=== PATIENT | female | born 1965 | race American Indian/Alaskan Native ===

== ENCOUNTER 2017-03-07 16:20 | Emergency (ER) | payer OTHER ==
[~2017-03-07] VITALS: Ht 165.1 cm; Wt 67.6 kg
[~2017-03-07 16:20] MED LIST: OMEP20ER PO; QC MULTI VITE PO; ZESTORETIC 20-121 EA PO
[2017-03-07] MEDS ORDERED: Ultram50 MG PO (16:55)
[2017-03-07] MEDS ORDERED: IBUP800 PO (16:55)
[2017-03-07] MEDS ORDERED: Augmentin 875-1 EACH PO (16:55)
[2017-07-02] MEDS ORDERED: Zantac150 MG PO (22:18)
[2017-07-02] MEDS ORDERED: PANT40 PO (22:18)
[2017-07-02] MEDS ORDERED: ZOLP5 PO (22:19)
[2017-07-02] MEDS ORDERED: CITA20 PO (22:19)
[2017-07-03] MEDS ORDERED: Percocet 5-3251 EACH PO (01:04)
[2017-08-31] MEDS ORDERED: LOSA50 (10:13)
[2017-08-31] MEDS ORDERED: Amlodipine Besy10 MG (10:15)
== END 2017-03-07 17:34 | disposition home or self-care (01) ==
LOC: ER 16:20
DX: S61.452A Open bite of left hand, initial encounter (principal); S61.451A Open bite of right hand, initial encounter; S71.152A Open bite, left thigh, initial encounter; S80.212A Abrasion, left knee, initial encounter; S80.211A Abrasion, right knee, initial encounter; W54.0XXA Bitten by dog, initial encounter; Z88.5 Allergy status to narcotic agent; Z88.8 Allergy status to other drugs, medicaments and biological substances; Z79.899 Other long term (current) drug therapy; Z87.891 Personal history of nicotine dependence
CPT/HCPCS: 73130; 99283

== ENCOUNTER 2017-07-02 20:44 | Emergency (ER) | END 2017-07-03 01:15 | disposition home or self-care (01) ==

== ENCOUNTER 2017-10-10 12:47 | Emergency (ER) | payer SELFPAY ==
[~2017-10-10] VITALS: Ht 165.1 cm; Wt 72.6 kg
[~2017-10-10 12:47] MED LIST changes: +Amlodipine Besy10 MG; +Augmentin 875-1 EACH PO; +CITA20 PO; +IBUP800 PO; +LOSA50; +PANT40 PO; +Percocet 5-3251 EACH PO; +Ultram50 MG PO; +ZOLP5 PO; +Zantac150 MG PO
== END 2017-10-10 14:40 | disposition home or self-care (01) ==
LOC: ER 12:47
DX: G43.909 Migraine, unspecified, not intractable, without status migrainosus (principal); I10 Essential (primary) hypertension; F32.9 Major depressive disorder, single episode, unspecified; K21.9 Gastro-esophageal reflux disease without esophagitis; Z87.891 Personal history of nicotine dependence; Z88.5 Allergy status to narcotic agent; Z79.899 Other long term (current) drug therapy
CPT/HCPCS: 36415; 96361; 96374; 96375; 99283-25; J0780; J1100; J1200; J1885; J7120

== ENCOUNTER 2023-01-02 08:00 | Day surgery (SDC) | payer OTHER ==
[~2023-01-02] VITALS: Ht 165.1 cm; Wt 76.8 kg
[2023-01-02] MEDS ORDERED: LANS30EC PO (08:29)
[2023-01-02] MEDS ORDERED: SULF500 PO (08:30)
[2023-01-02] MEDS ORDERED: AMLO10 PO (08:31)
[2023-01-02 10:20] VITALS: BP 122/74
== END 2023-01-02 10:19 | disposition home or self-care (01) ==
LOC: ORSCSDS 08:00
PROVIDERS: Internal Medicine Gastroenterology
PROC: 0DB58ZX Excision of Esophagus, Via Natural or Artificial Opening Endoscopic, Diagnostic (ICD-10-PCS; principal; 2023-01-02 09:30)
DX: K22.70 Barrett's esophagus without dysplasia (principal); Z86.19 Personal history of other infectious and parasitic diseases; K44.9 Diaphragmatic hernia without obstruction or gangrene; Z87.891 Personal history of nicotine dependence; Z79.899 Other long term (current) drug therapy
CPT/HCPCS: 88305; J2704

== ENCOUNTER 2023-12-07 10:08 | Day surgery (SDC) | payer OTHER ==
[~2023-12-07] VITALS: Ht 165.1 cm; Wt 71.5 kg
[~2023-12-07 10:08] MED LIST changes: +AMLO10 PO; +DICLOFENAC SODI50 GM; +FISH OIL 1,0001 EA10 PO; +LANS30EC PO; -LOSA50; +LOSA50 PO; +Lactated Ringer's 1,000 ML IV ONE; +MULVITA PO; +SULF500 PO; +VITAMIN D325 MC3 PO
[2023-12-07] MEDS ORDERED: Lactated Ringer's 1,000 ML IV ONE ×2 (10:25→13:20)
[2023-12-07] MEDS ORDERED: FentaNYL Citrate 50 MCG/ML 2 ML Injection ONE (12:12)
[2023-12-07] MEDS ORDERED: propofoL 20 ML IV ONE (12:12)
[2023-12-07] MEDS ORDERED: Midazolam HCl 1MG / ML 2ML Vial ONE (12:14)
[2023-12-07] MEDS ORDERED: CeFAZolin Sodium 2,000 MG VIAL ONE (12:21)
[2023-12-07] MEDS ORDERED: Lidocaine HCl 2% 10 ML SDA INJ ONE (12:27)
[2023-12-07] MEDS ORDERED: ePHEDrine Sulfate 50 MG/ML 1ML Injection ONE (12:31)
--- NOTE | 2023-12-07 12:42 | NUR ---
12/07/23 Abbie Dhillon 30ML OF ROPIVACAINE 0.5% MIXED AND VERIFIED WITH 0.15ML OF EPI (1MG/ML) TO MAKE ROPIVACAINE 0.5% WITH EPI 1:200,000 FOR INJECTION AT THE OPSITE.
[2023-12-07] MEDS ORDERED: Ropivacaine 0.5% HCl/Pf 5 MG/ML 20ML VIAL INJ ONE (12:55)
[2023-12-07] MEDS ORDERED: EPINEPhrine HCl 1 MG/ML 1ML Amp XX ONE (12:55)
[2023-12-07] MEDS ORDERED: HYDROmorphone HCl/Pf 1MG SYR ONE (13:34)
[2023-12-07 14:47] VITALS: BP 126/83
[2023-12-07] MEDS ORDERED: OxyCODONE HCL 5 MG TAB ONE (14:47)
== END 2023-12-07 15:04 | disposition home or self-care (01) ==
LOC: ORSCSDS 10:08
PROVIDERS: Podiatrist Foot & Ankle Surgery
PROC: 0QBP0ZZ Excision of Left Metatarsal, Open Approach (ICD-10-PCS; principal; 2023-12-07 12:00)
PROC: 0SGN04Z Fusion of Left Metatarsal-Phalangeal Joint with Internal Fixation Device, Open Approach (ICD-10-PCS; principal; 2023-12-07 12:00)
PROC: 0QSR04Z Reposition Left Toe Phalanx with Internal Fixation Device, Open Approach (ICD-10-PCS; principal; 2023-12-07 12:00)
DX: M20.12 Hallux valgus (acquired), left foot (principal); M77.42 Metatarsalgia, left foot; I10 Essential (primary) hypertension; K21.9 Gastro-esophageal reflux disease without esophagitis; K74.60 Unspecified cirrhosis of liver; Z87.891 Personal history of nicotine dependence; Z79.899 Other long term (current) drug therapy
CPT/HCPCS: A9270; C1713; C1889; J0171; J0690; J1171; J2003; J2250; J2704; J2795; J3010; J7120

== ENCOUNTER → 2024-05-02 | Outpatient (CLI) | payer OTHER ==
[~2024-05-02] MED LIST changes: -Lactated Ringer's 1,000 ML IV ONE
[2024-05-02 12:59] LABS: BASOPHILS ABSOLUTE AUTO 0.03 K/mm3 (0.00-0.23); BASOPHILS PERCENT AUTO 0 % (0-2); EOSINOPHILS ABSOLUTE AUTO 0.02 K/mm3 (0.00-0.68); EOSINOPHILS PERCENT AUTO 0 % (0-6); Hematocrit 35.2 % (33.0-51.0); Hemoglobin 12.2 g/dL (11.5-16.0); IMMATURE GRAN ABSOLUTE AUTO 0.03 K/mm3 (0.00-0.10); IMMATURE GRAN PERCENT AUTO 0 % (0-1); LYMPHOCYTES ABSOLUTE AUTO 0.69 K/mm3 (0.84-5.20); LYMPHOCYTES PERCENT AUTO 9 % (21-46); MONOCYTES PERCENT AUTO 13 % (4-13); Mean Corpuscular HGB 28.8 pg (26.0-34.0); Mean Corpuscular HGB Conc 34.7 g/dL (31.5-36.5); Mean Corpuscular Volume 83 fL (80-100); Mean Platelet Volume 10.2 fL (9.1-12.4); NEUTROPHILS ABSOLUTE AUTO 6.15 K/mm3 (1.96-9.15); NEUTROPHILS PERCENT AUTO 78 % (41-73); Platelet Count 218 K/mm3 (150-400); RDW Coefficient Variation 12.4 % (11.7-14.2); RDW Standard Deviation 37.9 fL (35.1-46.3); Red Blood Cell Count 4.23 M/mm3 (3.80-5.20); White Blood Cell Count 7.92 K/mm3 (4.00-11.30)
[2024-05-02 13:14] LABS: Albumin, Blood 3.2 g/dL (3.4-5.0); Albumin/Globulin Ratio 0.7 (0.8-1.8); Bilirubin, Total 0.5 mg/dL (0.1-1.0); Bun/Creatinine Ratio 9.7 (12.0-20.0); Calcium, Blood 8.9 mg/dL (8.5-10.1); Creatinine, Blood 1.03 mg/dL (0.40-1.00); Globulin, Blood 4.7 g/dL (2.2-4.0); Potassium, Blood 2.9 mmol/L (3.5-5.5); Total Protein, Blood 7.9 g/dL (6.4-8.2)
== END | disposition home or self-care (01) ==
LOC: LAB SHORT 12:54
DX: R06.02 Shortness of breath (principal)
CPT/HCPCS: 80053; 85025